=== PATIENT | female | born 1950 | race Two or more races ===

== ENCOUNTER 2024-06-01 11:06 | Emergency (ER) | payer OTHER ==
[~2024-06-01] VITALS: Ht 157.5 cm; Wt 43.5 kg
[2024-06-01] MEDS ORDERED: NORVASC2.5 M1 PO (12:11)
[2024-06-01] MEDS ORDERED: CHILDREN'S ASPI81 MG PO (12:11)
[2024-06-01] MEDS ORDERED: LIPITOR40 M1 PO (12:11)
[2024-06-01] MEDS ORDERED: METOCLOPRAMIDE HCL 5 MG/ML VIAL IM STA (13:05)
[2024-06-01] MEDS ORDERED: KETOROLAC TROMETHAMINE 60 MG VIAL IM STA (13:06)
== END 2024-06-01 13:45 | disposition home or self-care (01) ==
LOC: ER 11:07
DX: R53.81 Other malaise (principal); M13.0 Polyarthritis, unspecified; K29.70 Gastritis, unspecified, without bleeding; Z88.6 Allergy status to analgesic agent; Z88.1 Allergy status to other antibiotic agents
CPT/HCPCS: 96372; 99282; J1885; J2765